=== PATIENT | male | born 1990 | race Caucasian/White ===

== ENCOUNTER 2017-03-02 14:42 | Emergency (ER) | payer OTHER ==
[2017-03-02 16:23] LABS: CALCIUM 8.9 mg/dL (8.5-10.1); CARBON DIOXIDE 25.9 mmol/L (21-32); CHLORIDE SERUM 101 mmol/L (98-107); GFR1 > 60 mL/min; GLUCOSE SERUM 95 mg/dL (74-106); POTASSIUM SERUM 3.5 mmol/L (3.5-5.1); SODIUM SERUM 137 mmol/L (136-145)
[2017-03-02 16:28] LABS: ALBUMIN 3.7 g/dL (3.4-5.0); ALKALINE PHOSPHATASE 66 U/L (46-116); ALT/SGPT 23 U/L (16-63); AST/SGOT 19 U/L (15-37); BILIRUBIN TOTAL 0.6 mg/dL (0.20-1.00); LIPASE 60 IU/L (73-393); TOTAL PROTEIN, SERUM 8.1 g/dL (6.4-8.2)
[2017-03-02 16:49] VITALS: BP 109/74
== END 2017-03-02 16:49 | disposition home or self-care (01) ==
LOC: ED 14:42
PROVIDERS: Emergency Medicine
DX: R10.11 Right upper quadrant pain (principal)
CPT/HCPCS: J2550; J3010

== ENCOUNTER 2018-01-13 09:10 | Emergency (ER) | payer OTHER ==
[~2018-01-13] VITALS: Ht 180.3 cm; Wt 105.7 kg
[2018-01-13 09:14] VITALS: Ht 180.3 cm; Wt 105.7 kg
[2018-01-13 10:52] LABS: AMPHETAMINE QUAL UR NONE DETECTED (See below)
[2018-01-13 11:40] VITALS: BP 128/78
== END 2018-01-13 09:14 | disposition home or self-care (01) ==
LOC: ED 09:10
PROVIDERS: Emergency Medicine
DX: G57.12 Meralgia paresthetica, left lower limb (principal)

== ENCOUNTER 2018-05-08 21:20 | Emergency (ER) | payer OTHER | END 2018-05-08 23:11 | disposition home or self-care (01) | LOC: ED 21:20 ==